=== PATIENT | female | born 1955 | race Caucasian/White ===

== ENCOUNTER → 2017-09-11 | Outpatient (CLI) | payer BC, OTHER ==
[~2017-09-11] MED LIST: LEVO75TA42 PO; LEVO75TA43 PO; MULT-65 PO; OMEP20TA PO
[2017-09-11 11:38] LABS: HEMATOCRIT 42.1 % (35.0-46.0); HEMOGLOBIN 14.1 GM/DL (11.6-15.3); MEAN CELL VOLUME 92.8 FL (80.0-100.0); MEAN CORPUSCULAR HGB CONC 33.4 % (32.0-36.0); MEAN PLATELET VOLUME 7.8 FL (7.0-11.0); PLATELET COUNT 250 TH/MM3 (150-450); RED BLOOD COUNT 4.54 MIL/MM3 (4.00-5.30); RED CELL DISTRIBUTION WIDTH 12.8 % (11.6-17.2); WHITE BLOOD COUNT 6.9 TH/MM3 (4.0-11.0)
[2017-09-11 11:54] LABS: BILIRUBIN, URINE NEG (NEG); BLOOD, URINE NEG (NEG); GLUCOSE,URINE NEG (NEG); KETONE, URINE NEG (NEG); MUCUS URINE FEW /lpf (OCC); NITRITE,URINE NEG (NEG); PH, URINE 5.5 (5.0-8.5); SQUAMOUS EPITHELIAL CELL URINE 1 /hpf (0-5); URINE COLOR YELLOW (YELLW/STRAW); URINE LEUKOCYTE ESTERASE NEG (NEG)
[2017-09-11 12:09] LABS: ALBUMIN 3.5 GM/DL (3.4-5.0); ALT (GPT) 21 U/L (10-53); AST (GOT) 16 U/L (15-37); BICARBONATE 30.3 MEQ/L (21.0-32.0); BLOOD UREA NITROGEN 21 MG/DL (7-18); CALCIUM 8.9 MG/DL (8.5-10.1); CHLORIDE 108 MEQ/L (98-107); CREATININE 0.71 MG/DL (0.50-1.00); GLOMERULAR FILTRATION RATE 84 ML/MIN (>89); GLUCOSE,FASTING 107 MG/DL (74-99); SODIUM (NA) 144 MEQ/L (136-145)
[2017-09-11 12:11] LABS: ALKALINE PHOSPHATASE 96 U/L (45-117); TOTAL BILIRUBIN ADULT 0.4 MG/DL (0.2-1.0)
--- NOTE | 2017-09-11 12:23 | RADRPT ---
EXAM DATE/TIME: 09/11/2017 12:12 [place] COMPARISON: No previous studies available for comparison. INDICATIONS : Evaluate for pneumothorax, pneumonia and communicable diseases. Pre-op uterine surgery MEDICAL HISTORY : None. SURGICAL HISTORY : None. ENCOUNTER: Initial ACUITY: 1 day PAIN SCORE: 0/10 LOCATION: chest FINDINGS: PA and lateral views of the chest demonstrate the lungs to be symmetrically aerated without evidence of mass, infiltrate or effusion. The cardiomediastinal contours are unremarkable. Osseous structure s are intact. CONCLUSION: No acute disease. Owen Aguiar MD on September 11, 2017 at 12:20 Board Certified Radiologist. This report was verified electronically.
--- NOTE | 2017-09-11 18:25 | EKG ---
Date Performed: 09/11/2017 Time Performed: 11:28:13 PTAGE: 61 years EKG: SINUS BRADYCARDIA POSSIBLE LEFT ATRIAL ENLARGEMENT MINIMAL ST DEPRESSION BORDERLINE ECG NO PREVIOUS TRACING DOCTOR: Luan Puentes Interpretating Date/Time 09/11/2017 18:23:32
== END ==
LOC: CPRE 10:59
PROVIDERS: ATTEND Obstetrics & Gynecology
DX: Z01.812 Encounter for preprocedural laboratory examination (principal); Z01.810 Encounter for preprocedural cardiovascular examination; Z01.811 Encounter for preprocedural respiratory examination; R94.31 Abnormal electrocardiogram [ECG] [EKG]
CPT/HCPCS: 36415; 71046; 80053; 81001; 85027; 93005

== ENCOUNTER → 2017-09-19 | Day surgery (SDC) | payer BC ==
[~2017-09-19] VITALS: Ht 152.4 cm; Wt 64.3 kg
[~2017-09-19] MED LIST changes: +ACETAMINOPHEN 1000 MG/100 ML 100 ML IV ONE; +APREPITANT 40 MG CAP ONE; +CHLORHEXIDINE GLUCONATE 2 % 1 PACK (2 CLOTHS) TOPICAL PRN; +DEXAMETHASONE SOD PHOS 4 MG/ML VIAL IV ONE; +DO NOT ADM ANY ANTICOAGULANT DRUGS PRN; +KETOROLAC TROMETHAMINE 30 MG/ML (IVP) VIAL IV PUSH ONE; +KETOROLAC TROMETHAMINE 60 MG/2 ML (IM) VIAL IM PRN; +LACTATED RINGER'S 1000 ML INJ 1,000 ML IV ONE; +LACTATED RINGER'S 1000 ML IV PRN; -LEVO75TA42 PO; +LIDOCAINE HCL 1% PF 5 ML SYRINGE OTHER ONE; +METOPROLOL TARTRATE 25 MG TAB PO PRN; +MIDAZOLAM HCL 2 MG/2 ML VIAL ONE; -OMEP20TA PO; +ONDANSETRON HCL 4 MG/2 ML VIAL IV ONE; +ONDANSETRON ODT 4 MG TAB ONE; +ONDANSETRON ODT 4 MG TAB PO PRN; +POVIDONE IODINE 5% (ANTISEPSIS KIT) 4 APPLICATIONS EACH NARE PRN; +PROPOFOL 200 MG/20 ML AMP IV ONE; +SODIUM CHLORID 0.9% 500 ML IV PRN; +ceFAZolin 1,000 MG/NS 100 ML IV SCH; +oxyCODONE/ACETAMINOPHEN 5 MG/325 MG TAB PO PRN
--- NOTE | 2017-09-19 09:16 | MP ---
cc: Laurence Grider MD DATE OF OPERATION: 09/19/2017 DATE OF PROCEDURE: 09/19/2017 PREOPERATIVE DIAGNOSES: 1. Postmenopausal bleeding. 2. Thickened cystic endometrium. POSTOPERATIVE DIAGNOSES: 1. Postmenopausal bleeding. 2. Thickened cystic endometrium. PROCEDURE PERFORMED: Examination under anesthesia, hysteroscopy, MyoSure curettage. SURGEON: Dr. Grider. ANESTHESIA: General via LMA. FLUIDS: 1000 mL crystalloid. ESTIMATED BLOOD LOSS: 20 mL. URINE OUTPUT: 100 mL clear yellow on straight cath prior to procedure. FLUID DEFICIT AT HYSTEROSCOPY: 595 mL. FINDINGS: Atrophic-appearing endometrium was visualized at hysteroscopy, bilateral tubal ostia were visualized. PROCEDURES: The patient was taken to the operating room where general anesthesia was found to be adequate. She was then prepped and draped in the normal sterile fashion in the dorsal lithotomy position. The urinary bladder was emptied of urine using sterile technique. A speculum was placed in the vagina, single-tooth tenaculum applied to the anterior lip of the cervix. The uterus sounded approximately 7-8 cm. The cervix was then gently dilated with King dilators sizes 9 through 18. The hysteroscopy was performed with the findings as noted above. The MyoSure device was then used to resect the endometrium and the specimen was sent to pathology. Hemostasis was assured. All of the instruments were removed from the vagina. The sponge, lap, needle and instrument count was correct. The patient was awakened from anesthesia and transferred to the recovery room in stable condition. Pathology was endometrial curettings. MD COLTEN Arellano/JAIR , 09:05 AM , 09:15 AM
[2017-09-19 10:47] VITALS: BP 113/69; PULSE 53; RESP 18; TEMP 97.5; O2SAT 98
== END | disposition home or self-care (01) ==
LOC: HSDC 06:07
PROVIDERS: ATTEND Obstetrics & Gynecology
DX: N95.0 Postmenopausal bleeding (principal); R93.8 Abnormal findings on diagnostic imaging of other specified body structures
CPT/HCPCS: 00952; 36415; 58561; 86850; 86900; 86901; 88305; J0131; J0690; J1100; J1885; J2250; J2405; J3010; J7120; J8501